=== PATIENT | female | born 1950 | race Caucasian/White ===

== ENCOUNTER → 2017-11-01 | Outpatient (CLI) | payer MEDICARE, OTHER ==
[2017-11-01 10:43] LABS: HEMATOCRIT 42.6 % (36.0-47.0); HEMOGLOBIN 13.8 g/dl (12.0-15.5); MEAN CORPUSCULAR HEMOGLOBIN 28.8 pg (27.0-33.0); MEAN CORPUSCULAR HGB CONC 32.4 g/dl (32.0-36.5); MEAN CORPUSCULAR VOLUME 88.9 fl (80.0-96.0); PLATELET COUNT, AUTOMATED 238 10^3/uL (150-450); RED BLOOD COUNT 4.79 10^6/uL (4.00-5.40); RED CELL DISTRIBUTION WIDTH 12.8 % (11.5-14.5); WHITE BLOOD COUNT 5.4 10^3/uL (4.0-10.0)
[2017-11-01 10:56] LABS: INR 0.97
[2017-11-01 11:27] LABS: ERYTHROCYTE SEDIMENTATION RATE 4 mm/hr (0-30)
[2017-11-01 12:48] LABS: ALBUMIN/GLOBULIN RATIO 1.43 (1.00-1.93); ALKALINE PHOSPHATASE 105 U/L (45-117); ALT/SGPT 35 U/L (12-78); ANION GAP 6 MEQ/L (8-16); AST/SGOT 25 U/L (7-37); BILIRUBIN,TOTAL 0.5 MG/DL (0.2-1.0); BLOOD UREA NITROGEN 25 MG/DL (7-18); CALCIUM LEVEL 9.1 MG/DL (8.8-10.2); CARBON DIOXIDE LEVEL 31 MEQ/L (21-32); CHLORIDE LEVEL 106 MEQ/L (98-107); CREATININE FOR GFR 0.75 MG/DL (0.55-1.30); GLOMERULAR FILTRATION RATE > 60.0 (>45); GLUCOSE, FASTING 88 MG/DL (70-100); POTASSIUM SERUM 4.4 MEQ/L (3.5-5.1); SODIUM LEVEL 143 MEQ/L (136-145); TOTAL PROTEIN 6.8 GM/DL (6.4-8.2)
== END ==
LOC: M ADMPAT 09:24
DX: M17.11 Unilateral primary osteoarthritis, right knee (principal); Z79.01 Long term (current) use of anticoagulants
CPT/HCPCS: 71046

== ENCOUNTER 2017-11-21 10:44 | Inpatient (IN) | payer MEDICARE, OTHER ==
[2017-11-21] MEDS: LR 1,000 ML IV ×3 (12:09→15:45)
[2017-11-21] MEDS ORDERED: MIDAZOLAM INJ 2 MG/2 ML VIAL (J2250) As Ordered ×3 (12:12→15:35)
[2017-11-21] MEDS ORDERED: fentaNYL 100 MCG/2 ML INJECTION (J3010) As Ordered ×3 (12:12→15:35)
[2017-11-21] MEDS: fentaNYL 100 MCG/2 ML INJECTION (J3010) IV (12:21)
[2017-11-21] MEDS: MIDAZOLAM INJ 2 MG/2 ML VIAL (J2250) IV (12:22)
[2017-11-21] MEDS ORDERED: ONDANSETRON 4MG/2ML VIAL (J2405) As Ordered (13:57)
[2017-11-21] MEDS ORDERED: dexameTHASONE 4 MG/ML 1ML VIAL (J1100) As Ordered (13:57)
[2017-11-21] MEDS ORDERED: PROPOFOL 200 MG/20 ML VIAL As Ordered (14:17)
[2017-11-21] MEDS: EPINEPHrine INJ 1 MG/ML 1ML AMP As Ordered (14:19)
[2017-11-21] MEDS: ceFAZolin 1GM INJ (J0690 PER 500MG) As Ordered (14:19)
[2017-11-21] MEDS: TRANEXAMIC ACID 100 MG/ML 10ML VIAL As Ordered (14:20)
[2017-11-21] MEDS: BUPIVACAINE LIPOSOME/PF 1.3% 20 ML VIAL (13.3MG/ML)(EXPAREL) As Ordered (14:50)
[2017-11-21] MEDS ORDERED: MORPHINE 1MG/ML IN 0.9% NACL 100ML IV BAG As Ordered (15:08)
[2017-11-21] MEDS ORDERED: ROPIvacaine 0.5% 30 ML INJECTION (J2795 PER 1MG) (15:28)
[2017-11-21] MEDS ORDERED: LIDOCAINE 1% MDV 20ML VIAL (15:28)
[2017-11-21] MEDS ORDERED: dexameTHASONE 10 MG/1 ML VIAL PRES.FREE (J1100) (15:28)
[2017-11-21] MEDS ORDERED: EPIDURAL/PCA KEYS XX (15:45)
[2017-11-21] MEDS ORDERED: NALBUPHINE HCL 10 MG/ML AMP (J2300) IV (15:45)
[2017-11-21] MEDS ORDERED: diphenhydrAMINE INJ 50MG/ML VIAL (J1200) IV (15:45)
[2017-11-21] MEDS ORDERED: HYDROMORPHONE HCL 0.5 MG/ 0.5 ML SYRINGE (J1170 PER 1) IV (15:45)
[2017-11-21] MEDS ORDERED: PERCOCET 5MG/325MG TAB PO (15:45)
[2017-11-21] MEDS ORDERED: FLEET ENEMA PR (15:45)
[2017-11-21] MEDS ORDERED: NALOXONE INJ 0.4 MG/1 ML VIAL (J2310) IV (15:45)
[2017-11-21] MEDS ORDERED: MORPHINE 1MG/ML IN 0.9% NACL 100ML IV BAG IV (15:45)
[2017-11-21] MEDS ORDERED: ACETAMINOPHEN TAB 650MG DOSE (2X325MG) PO (15:45)
[2017-11-21] MEDS ORDERED: fentaNYL 100 MCG/2 ML INJECTION (J3010) IV (15:45)
[2017-11-21] MEDS ORDERED: MEPERIDINE INJ 25 MG/ML VIAL (J2175) As Ordered (16:00)
[2017-11-21] MEDS: MEPERIDINE INJ 25 MG/ML VIAL (J2175) IV ×2 (16:02→16:11)
[2017-11-21] MEDS: ONDANSETRON 4MG/2ML VIAL (J2405) IV (16:11)
[2017-11-21] MEDS ORDERED: PERCOCET 5MG/325MG TAB As Ordered (17:16)
[2017-11-22] MEDS: ONDANSETRON 4MG/2ML VIAL (J2405) IV ×2 (00:37→10:44)
[2017-11-22] MEDS: LR 1,000 ML IV (05:05)
[2017-11-22] MEDS ORDERED: ONDANSETRON 4 MG TAB (S0181) PO (06:30)
[2017-11-22 06:57] LABS: HEMATOCRIT 34.9 % (36.0-47.0); HEMOGLOBIN 11.5 g/dl (12.0-15.5); MEAN CORPUSCULAR VOLUME 88.1 fl (80.0-96.0); PLATELET COUNT, AUTOMATED 205 10^3/uL (150-450); RED BLOOD COUNT 3.96 10^6/uL (4.00-5.40); RED CELL DISTRIBUTION WIDTH 12.6 % (11.5-14.5); WHITE BLOOD COUNT 11.2 10^3/uL (4.0-10.0)
[2017-11-22] MEDS: RIVAROXABAN 10 MG TAB (XARELTO) PO (09:21)
[2017-11-22] MEDS: MOM 30ML SUSPENSION UDC PO (09:21)
[2017-11-22] MEDS: PERCOCET 5MG/325MG TAB PO ×4 (09:22→22:27)
[2017-11-22] MEDS: SENOKOT S TAB PO ×2 (09:22→22:24)
[2017-11-22] MEDS: MIRALAX *UNIT DOSE* 17GM PACKET PO (09:22)
[2017-11-23] MEDS: PERCOCET 5MG/325MG TAB PO ×3 (02:32→10:54)
[2017-11-23 07:37] LABS: HEMATOCRIT 33.9 % (36.0-47.0); MEAN CORPUSCULAR HEMOGLOBIN 29.3 pg (27.0-33.0); MEAN CORPUSCULAR HGB CONC 32.4 g/dl (32.0-36.5); MEAN CORPUSCULAR VOLUME 90.2 fl (80.0-96.0); PLATELET COUNT, AUTOMATED 200 10^3/uL (150-450); RED BLOOD COUNT 3.76 10^6/uL (4.00-5.40); RED CELL DISTRIBUTION WIDTH 13.1 % (11.5-14.5); WHITE BLOOD COUNT 9.9 10^3/uL (4.0-10.0)
[2017-11-23] MEDS: MOM 30ML SUSPENSION UDC PO (10:53)
[2017-11-23] MEDS: MIRALAX *UNIT DOSE* 17GM PACKET PO (10:54)
[2017-11-23] MEDS: SENOKOT S TAB PO (10:54)
[2017-11-23] MEDS: RIVAROXABAN 10 MG TAB (XARELTO) PO (12:53)
== END 2017-11-23 13:05 | disposition home or self-care (01) | DRG 470 ==
LOC: M OR 10:44 → M MS5PR 11-23 11:07
PROC: 0SRC0J9 Replacement of Right Knee Joint with Synthetic Substitute, Cemented, Open Approach (ICD-10-PCS; principal; 2017-11-21 13:41)
DX: M17.11 Unilateral primary osteoarthritis, right knee (principal); E89.0 Postprocedural hypothyroidism; E66.9 Obesity, unspecified; Z88.1 Allergy status to other antibiotic agents; Z79.899 Other long term (current) drug therapy; Z98.84 Bariatric surgery status; Z90.49 Acquired absence of other specified parts of digestive tract; Z85.850 Personal history of malignant neoplasm of thyroid; Z68.28 Body mass index [BMI] 28.0-28.9, adult